=== PATIENT | female | born 1995 | race Caucasian/White ===

== ENCOUNTER → 2016-04-13 | Outpatient (CLI) | payer MEDICAID ==
[~2016-04-13] MED LIST: CELE20TA PO; CITA20 PO; JANU100T PO; METF-324 PO; SERO100T PO
--- NOTE | 2016-04-13 12:24 | EKG ---
Date Performed: 04/13/2016 Time Performed: 10:23:26 PTAGE: 20 years EKG: Sinus rhythm . Low QRS voltages in precordial leads Borderline ECG NO PREVIOUS TRACING DOCTOR: Boo Coelho Interpretating Date/Time 04/13/2016 12:22:24
== END ==
LOC: HCAV 10:15
DX: R00.2 Palpitations (principal); R55 Syncope and collapse
CPT/HCPCS: 93005

== ENCOUNTER 2016-12-18 15:33 | Emergency (ER) | payer MEDICAID ==
[~2016-12-18] VITALS: Ht 175.3 cm; Wt 125.8 kg
[~2016-12-18 15:33] MED LIST changes: -CITA20 PO; -JANU100T PO; -METF-324 PO
--- NOTE | 2016-12-18 16:04 | PD ---
HPI Chief Complaint: Chest Pain Time Seen by Provider: 15:41 Travel History International Travel<30 days: No Contact w/Intl Traveler<30days: No Traveled to known affect area: No History of Present Illness HPI The patient was seen and examined in the presence of the nurse. This patient complains of chest pain. Duration 2 days. Symptoms severity is moderate. She has history of schizophrenia. No known cardiac disease. Denies chest wall injury. She is not having fever or shortness of breath. No alleviating factors. no Exacerbating factors PFSH Past Medical History Diabetes: Yes (type II) Diminished Hearing: No Immunizations Current: Yes Schizophrenia: Yes ?: Not Past Surgical History Tonsillectomy: Yes (and adenoids) Other Surgery: Yes (jaw surgery) Social History Alcohol Use: No Tobacco Use: No Substance Use: No Allergies-Medications (Allergen,Severity, Reaction): Coded Allergies: Sulfa (Sulfonamide Antibiotics) (Verified Allergy, Severe, 12/18/16) Reported Meds & Prescriptions Reported Meds & Active Scripts Active Seroquel (Quetiapine Fumarate) 100 Mg Tab 100 Mg PO 1-2 TAB Q HS Celexa (Citalopram Hydrobromide) 20 Mg Tab 20 Mg PO DAILY Review of Systems General / Constitutional: No: Fever Eyes: No: Visual changes HENT: No: Headaches Cardiovascular: Positive: Chest Pain or Discomfort Respiratory: No: Shortness of Breath Gastrointestinal: No: Abdominal Pain Genitourinary: No: Dysuria Musculoskeletal: No: Pain Skin: No Rash Neurologic: No: Weakness Psychiatric: No: Depression Endocrine: No: Polydipsia Hematologic/Lymphatic: No: Easy Bruising Physical Exam Narrative GENERAL: Well-nourished, well-developed patient in no apparent distress. SKIN: Focused skin assessment reveals no rash and nodules. Skin is Warm and dry. HEAD: Atraumatic. Normocephalic. EYES: Pupils equal and round. No scleral icterus. No injection or drainage. ENT: No nasal bleeding or discharge. Mucous membranes pink and moist. NECK: Trachea midline. No JVD. CARDIOVASCULAR: Regular rate and rhythm. No murmur appreciated. RESPIRATORY: No accessory muscle use. Clear to auscultation. Breath sounds equal bilaterally. GASTROINTESTINAL: Abdomen soft, non-tender, nondistended. Hepatic and splenic margins not palpable. MUSCULOSKELETAL: No obvious deformities. No clubbing. No cyanosis. No edema. Some sternal tenderness which reproduces her chest pain complaints. No bruising or crepitus. NEUROLOGICAL: Awake and alert. No obvious cranial nerve deficits. Motor grossly within normal limits. Normal speech. PSYCHIATRIC: Appropriate mood and affect; insight and judgment fairly reasonable given her schizophrenia Data Data Orders Orders Chest, Single Ap (12/18/16 ) Electrocardiogram (12/18/16 ) Acetamin-Hydrocod 325-5 Mg ([place] 5-325 (12/18/16 16:15) MDM Medical Decision Making Medical Screen Exam Complete: Yes Emergency Medical Condition: Yes Medical Record Reviewed: Yes Differential Diagnosis Differential diagnosis includes SD, angina, pericarditis, pleurisy, GERD, anxiety. Narrative Course I have reviewed the patient's electronic medical record. I reviewed her EKG which shows sinus rhythm at [address] elevation or ectopy I reviewed her chest x-ray is normal Presentation is consistent with chest wall pain. She will not require inpatient evaluation or cardiac stress testing for this problem. Recommend primary care follow-up. Gave her a pain pill Diagnosis Primary Impression: Musculoskeletal chest pain Additional Impression: Schizophrenia, chronic condition Additional Instructions: The patient was advised to follow up with their physician and return if they worsen. Med/Other Pt SpecificInfo: Other Disposition: 01 DISCHARGE HOME Condition: Stable Carson Cross MD Dec 18, 2016 16:04
[2016-12-18] MEDS ORDERED: ACETAMINOPHEN/HYDROcodone 325 MG/5 MG TAB PO ONE (16:15)
--- NOTE | 2016-12-18 16:46 | RADRPT ---
EXAM DATE/TIME: 12/18/2016 16:26 [facility] COMPARISON: No previous studies available for comparison. INDICATIONS : Chest pain. MEDICAL HISTORY : None. SURGICAL HISTORY : None. ENCOUNTER: Initial ACUITY: 1 day PAIN SCORE: 8/10 LOCATION: Bilateral chest FINDINGS: A single view of the chest demonstrates the lungs to be symmetrically aerated without evidence of mas s, infiltrate or effusion. The cardiomediastinal contours are unremarkable. Osseous structures are intact. CONCLUSION: No acute disease. Dax Singh MD FACR on December 18, 2016 at 16:44 Board Certified Radiologist. This report was verified electronically.
--- NOTE | 2016-12-18 21:22 | EKG ---
Date Performed: 12/18/2016 Time Performed: 15:49:58 PTAGE: 21 years EKG: Sinus rhythm NORMAL ECG INTERPRETATION BASED ON A DEFAULT AGE OF 41 YEARS No significant change from prior electr ocardiogram. DOCTOR: Fermin Cobb Interpretating Date/Time 12/18/2016 21:20:48
== END 2016-12-18 17:29 | disposition home or self-care (01) ==
LOC: PHED 15:33
DX: R07.9 Chest pain, unspecified (principal); F20.89 Other schizophrenia; E11.9 Type 2 diabetes mellitus without complications
CPT/HCPCS: 71010; 93005; 99284

== ENCOUNTER 2017-07-24 19:03 | Emergency (ER) | payer OTHER ==
[~2017-07-24] VITALS: Ht 177.8 cm; Wt 109.7 kg
[2017-07-24 19:06] VITALS: BP 161/91; PULSE 126; RESP 28; TEMP 97.9; O2SAT 100
[2017-07-24] MEDS ORDERED: METF1000 PO (19:14)
[2017-07-24 19:26] VITALS: BP 123/71; PULSE 93; RESP 18; O2SAT 99
[2017-07-24] MEDS ORDERED: SODIUM CHLORIDE 0.9% FLUSH 10 ML FLUSH IVF PRN (19:45)
[2017-07-24] MEDS ORDERED: SODIUM CHLOR 0.9% 1000 ML INJ 1,000 ML IV ONE ×2 (19:45→21:15)
[2017-07-24 19:49] LABS: AUTOMATED NEUTROPHIL # 8.5 TH/MM3 (1.8-7.7); BASOPHIL # 0.2 TH/MM3 (0-0.2); BASOPHIL % 1.8 % (0.0-2.0); EOSINOPHIL # 0.1 TH/MM3 (0-0.4); EOSINOPHIL % 0.7 % (0.0-4.0); HEMATOCRIT 42.5 % (35.0-46.0); HEMOGLOBIN 14.1 GM/DL (11.6-15.3); LYMPH % 16.8 % (9.0-44.0); LYMPHOCYTE # 1.9 TH/MM3 (1.0-4.8); MEAN CELL VOLUME 79.8 FL (80.0-100.0); MEAN CORPUSCULAR HEMOGLOBIN 26.5 PG (27.0-34.0); MEAN CORPUSCULAR HGB CONC 33.3 % (32.0-36.0); MEAN PLATELET VOLUME 9.2 FL (7.0-11.0); MONO % 4.5 % (0.0-8.0); MONOCYTE # 0.5 TH/MM3 (0-0.9); NEUT % 76.2 % (16.0-70.0); PLATELET COUNT 267 TH/MM3 (150-450); RED BLOOD COUNT 5.33 MIL/MM3 (4.00-5.30); RED CELL DISTRIBUTION WIDTH 12.6 % (11.6-17.2); WHITE BLOOD COUNT 11.2 TH/MM3 (4.0-11.0)
[2017-07-24 19:58] LABS: BILIRUBIN, URINE NEG (NEG); BLOOD, URINE NEG (NEG); GLUCOSE,URINE 1000 OR GREATER mg/dL (NEG); KETONE, URINE TRACE mg/dL (NEG); NITRITE,URINE NEG (NEG); URINE COLOR YELLOW (YELLW/STRAW); URINE LEUKOCYTE ESTERASE TRACE (NEG)
--- NOTE | 2017-07-24 19:59 | RADRPT ---
EXAM DATE/TIME: 07/24/2017 19:44 [facility] COMPARISON: CHEST SINGLE AP, December 18, 2016, 16:26. INDICATIONS : Chest pain. MEDICAL HISTORY : Diabetes mellitus type II. Schizophrenia. SURGICAL HISTORY : Tonsillectomy. Jaw surgery. ENCOUNTER: Initial ACUITY: 1 day PAIN SCORE: 4/10 LOCATION: Bilateral chest FINDINGS: A single view of the chest demonstrates the lungs to be symmetrically aerated without evidence of mas s, infiltrate or effusion. The cardiomediastinal contours are unremarkable. Osseous structures are intact. CONCLUSION: No acute disease. Morris Angel MD on July 24, 2017 at 19:58 Board Certified Radiologist. This report was verified electronically.
[2017-07-24 20:07] LABS: CHLORIDE 99 MEQ/L (98-107); SODIUM (NA) 134 MEQ/L (136-145)
[2017-07-24 20:10] LABS: BICARBONATE 25.7 MEQ/L (21.0-32.0); CALCIUM 8.8 MG/DL (8.5-10.1); GLUCOSE,RANDOM 386 MG/DL (74-106); MAGNESIUM 1.6 MG/DL (1.5-2.5)
[2017-07-24 20:11] LABS: BLOOD UREA NITROGEN 11 MG/DL (7-18)
[2017-07-24 20:13] LABS: PROTHROMBIN TIME - PATIENT 10.1 SEC (9.8-11.6)
[2017-07-24 20:14] LABS: CREATININE 0.73 MG/DL (0.50-1.00); GLOMERULAR FILTRATION RATE 101 ML/MIN (>89)
[2017-07-24] MEDS ORDERED: KETOROLAC TROMETHAMINE 30 MG/ML (IVP) VIAL IV PUSH ONE (20:15)
[2017-07-24] MEDS ORDERED: ONDANSETRON HCL 4 MG/2 ML VIAL IV PUSH ONE (20:15)
[2017-07-24 20:18] LABS: TROPONIN I LESS THAN 0.02 NG/ML (0.02-0.05)
[2017-07-24 20:29] LABS: BACTERIA, URINE FEW /hpf; RBC, URINE 0-3 /hpf (0-3); SQUAMOUS EPITHELIAL CELL URINE 0-5 /hpf (0-5); WHITE BLOOD CELL CLUMPS FEW
[2017-07-24 20:57] VITALS: BP 119/77; PULSE 88; RESP 18; O2SAT 98
[2017-07-24] MEDS ORDERED: cefTRIAXone INJ 1,000 MG in SODIUM CHLORIDE 0.9% INJ 100 ML IV ONE (21:15)
[2017-07-24 21:32] VITALS: BP 108/66; PULSE 86; TEMP 98.3
--- NOTE | 2017-07-24 22:08 | PD ---
HPI Chief Complaint: Chest Pain Time Seen by Provider: 19:34 Travel History International Travel<30 days: No Contact w/Intl Traveler<30days: No Traveled to known affect area: No History of Present Illness HPI 22-year-old female presents to the emergency department complaint of chest pain sharp and stabbing and headache. Patient has had dizziness. Patient denies fever chills. She denies syncope or near syncope. Patient denies any upper extremity or lower extremity numbness tingling or weakness. Patient denies abdominal pain. Patient is unaware of dysuria frequency urgency hematuria or flank pain. Patient's had no shortness of breath. No hemoptysis or cough. Family members have been ill with respiratory illness and patient has had some mild respiratory symptoms. Patient was at work when symptoms began sutured no medications and presents to immediately from work to the emergency department. Patient occasionally takes ibuprofen which provides pain relief for any inflammatory symptoms and is prescribed metformin 1 g twice daily. Patient did not take her evening dose of medication. Patient is unable to identify exacerbating or alleviating factors. Patient rates pain as moderate to severe. Headache is not sudden onset thunderclap or worst ever. Chest pain is nonradiating. No diaphoresis dyspnea pleuritic pain hemoptysis referred neck jaw back shoulder arm pain. PFSH Past Medical History Narrative Medical Diabetes, headaches, schizophrenia, noncompliance; no alcohol use; nursing notes reviewed Anxiety: Yes Diabetes: Yes (type II) Patient Takes Glucophage: Yes Diminished Hearing: No Immunizations Current: Yes Schizophrenia: Yes Tetanus Vaccination: > 5 Years Influenza Vaccination: Yes ?: Not LMP: STATED 07/24/17 "DON'T KNOW" : 0 Past Surgical History Tonsillectomy: Yes (and adenoids) Other Surgery: Yes (jaw surgery) Social History Alcohol Use: No Tobacco Use: No Substance Use: No Allergies-Medications (Allergen,Severity, Reaction): Coded Allergies: Sulfa (Sulfonamide Antibiotics) (Verified Allergy, Severe, 07/24/17) Reported Meds & Prescriptions Reported Meds & Active Scripts Active Macrobid (Nitrofurantoin Monoh/Nitrofur Macro) 100 Mg Cap 100 Mg PO BID 7 Days Zofran Odt (Ondansetron Odt) 4 Mg Tab 4 Mg SL Q6HR PRN Seroquel (Quetiapine Fumarate) 100 Mg Tab 100 Mg PO 1-2 TAB Q HS Celexa (Citalopram Hydrobromide) 20 Mg Tab 20 Mg PO DAILY Reported Metformin (Metformin HCl) 1,000 Mg Tab 1,000 Mg PO BIDPC Review of Systems Except as stated in HPI: all other systems reviewed are Neg Physical Exam Narrative GENERAL: Well-developed well-nourished female no acute distress no respiratory SKIN: Warm and dry. HEAD: Atraumatic. Normocephalic. EYES: Pupils equal and round. No scleral icterus. No injection or drainage. ENT: No nasal bleeding or discharge. Mucous membranes pink and moist. NECK: Trachea midline. No JVD. No meningismus no nuchal rigidity. CARDIOVASCULAR: Regular rate and rhythm. RESPIRATORY: No accessory muscle use. Clear to auscultation. Breath sounds equal bilaterally. GASTROINTESTINAL: Abdomen soft, non-tender, nondistended. Hepatic and splenic margins not palpable. MUSCULOSKELETAL: Extremities without clubbing, cyanosis, or edema. No obvious deformities. NEUROLOGICAL: Awake and alert. No obvious cranial nerve deficits. Motor grossly within normal limits. Five out of 5 muscle strength in the arms and legs. Normal speech. PSYCHIATRIC: Appropriate mood and affect; insight and judgment normal. Data Data Last Documented VS Vital Signs Date Time Temp Pulse Resp B/P (MAP) Pulse Ox O2 Delivery O2 Flow Rate FiO2 07/24/17 22:50 Room Air 07/24/17 22:48 88 16 121/73 (89) 99 07/24/17 21:32 98.3 Orders Orders Electrocardiogram (07/24/17 19:35) Basic Metabolic Panel (Bmp) (07/24/17 19:35) Ckmb (Isoenzyme) Profile (07/24/17 19:35) Complete Blood Count With Diff (07/24/17 19:35) Magnesium (Mg) (07/24/17 19:35) Prothrombin Time / Inr (Pt) (07/24/17 19:35) Act Partial Throm Time (Ptt) (07/24/17 19:35) Troponin I (07/24/17 19:35) Chest, Single Ap (07/24/17 19:35) Ecg Monitoring (07/24/17 19:35) Bilateral Bp Monitoring (07/24/17 19:35) Iv Access Insert/Monitor (07/24/17 19:35) Oximetry (07/24/17 19:35) Oxygen Administration (07/24/17 19:35) Sodium Chloride 0.9% Flush (Ns Flush) (07/24/17 19:45) Sodium Chlor 0.9% 1000 Ml Inj (Ns 1000 M (07/24/17 19:45) Lactic Acid (07/24/17 19:35) Ed Urine Pregnancytest Poc (07/24/17 19:35) Urinalysis - C+S If Indicated (07/24/17 19:35) Beta Hydroxybutyrate (Acetone) (07/24/17 19:35) Blood Glucose (07/24/17 19:35) Ondansetron Inj (Zofran Inj) (07/24/17 20:15) Ketorolac Inj (Toradol Inj) (07/24/17 20:15) Urine Culture (07/24/17 19:45) Sodium Chlor 0.9% 1000 Ml Inj (Ns 1000 M (07/24/17 21:15) Ceftriaxone Inj (Rocephin Inj) (07/24/17 21:15) Blood Culture (07/24/17 21:07) Lactic Acid (07/24/17 21:20) Blood Glucose (07/24/17 21:07) Metformin (Glucophage) (07/24/17 23:15) Ed Discharge Order (07/24/17 23:05) Labs Laboratory Tests Test 07/24/17 19:20 07/24/17 19:45 07/24/17 22:25 White Blood Count 11.2 TH/MM3 Red Blood Count 5.33 MIL/MM3 Hemoglobin 14.1 GM/DL Hematocrit 42.5 % Mean Corpuscular Volume 79.8 FL Mean Corpuscular Hemoglobin 26.5 PG Mean Corpuscular Hemoglobin Concent 33.3 % Red Cell Distribution Width 12.6 % Platelet Count 267 TH/MM3 Mean Platelet Volume 9.2 FL Neutrophils (%) (Auto) 76.2 % Lymphocytes (%) (Auto) 16.8 % Monocytes (%) (Auto) 4.5 % Eosinophils (%) (Auto) 0.7 % Basophils (%) (Auto) 1.8 % Neutrophils # (Auto) 8.5 TH/MM3 Lymphocytes # (Auto) 1.9 TH/MM3 Monocytes # (Auto) 0.5 TH/MM3 Eosinophils # (Auto) 0.1 TH/MM3 Basophils # (Auto) 0.2 TH/MM3 CBC Comment DIFF FINAL Differential Comment Prothrombin Time 10.1 SEC Prothromb Time International Ratio 1.0 RATIO Activated Partial Thromboplast Time 26.5 SEC Blood Urea Nitrogen 11 MG/DL Creatinine 0.73 MG/DL Random Glucose 386 MG/DL Calcium Level 8.8 MG/DL Magnesium Level 1.6 MG/DL Sodium Level 134 MEQ/L Potassium Level 3.6 MEQ/L Chloride Level 99 MEQ/L Carbon Dioxide Level 25.7 MEQ/L Anion Gap 9 MEQ/L Estimat Glomerular Filtration Rate 101 ML/MIN Lactic Acid Level 2.0 mmol/L 1.3 mmol/L Total Creatine Kinase 84 U/L Troponin I LESS THAN 0.02 NG/ML B-Hydroxybutyrate 0.18 MMOL/L Urine Color YELLOW Urine Turbidity CLEAR Urine pH 5.0 Urine Specific [place] 1.010 Urine Protein NEG mg/dL Urine Glucose (UA) 1000 OR GREATER mg/dL Urine Ketones TRACE mg/dL Urine Occult Blood NEG Urine Nitrite NEG Urine Bilirubin NEG Urine Urobilinogen 0.2 MG/DL Urine Leukocyte Esterase TRACE Urine RBC 0-3 /hpf Urine WBC 25-49 /hpf Urine WBC Clumps FEW Urine Squamous Epithelial Cells 0-5 /hpf Urine Bacteria FEW /hpf Urine Yeast (Budding) FEW Microscopic Urinalysis Comment CULTURE INDICATED MDM Medical Decision Making Medical Screen Exam Complete: Yes Emergency Medical Condition: Yes Medical Record Reviewed: Yes Interpretation(s) Lactic acid: 2, repeat 1.3, not elevated Beta hydroxybutyric acid: 0.18, not elevated [id number] hCG: Negative Urinalysis: Positive glucose positive ketones positive leukocyte Estrace positive white blood cells positive clumped white blood cells positive bacteria cultures indicated Last Impressions Chest X-Ray 07/24/171934 Signed Impressions: Service Date/Time: Monday, July 24, 2017 19:44 - CONCLUSION: No acute disease. Morris Angel MD CBC & BMP Diagram 07/24/17 19:20 Calcium Level 8.8, Magnesium Level 1.6 Vital Signs Date Time Temp Pulse Resp B/P (MAP) Pulse Ox O2 Delivery O2 Flow Rate FiO2 07/24/17 22:50 Room Air 07/24/17 22:48 88 16 121/73 (89) 99 Room Air 07/24/17 21:32 98.3 86 108/66 (80) 07/24/17 20:57 88 18 119/77 (91) 98 Room Air 07/24/17 19:26 93 18 123/71 (88) 99 Room Air 07/24/17 19:17 91 Room Air 07/24/17 19:06 97.9 126 28 161/91 (114) 100 EKG: Normal sinus rhythm rate [address] elevation injury pattern or ectopy noted Differential Diagnosis Chest pain, atypical chest pain, esophageal spasm, peptic ulcer disease, gastritis, biliary colic, pneumonia, pneumothorax, ACS, PE, , UTI, viral syndrome, electrolyte disturbance, arrhythmia Narrative Course IV access obtained specimens collected and sent for resulting patient administered normal saline bolus EKG performed which reveals no acute ST elevation injury pattern or ectopy CBC with automated differential grossly normal range lactic acid 2.0 not elevated Chemistries remarkable for random glucose of 386 normal bicarb and anion gap; troponin I less than 0.02, elevated CK 86 not elevated Repeat lactic acid 1.3 Urinalysis positive leukocyte esterase white blood cells clumped white blood cells bacteria culture indicated also noted to have glucose and ketones Beta hydroxybutyric acid is 0.18 not elevated Patient received Rocephin 1 g IV for abnormal urinalysis additional liter of normal saline patient received Toradol for complaint of chest pain headache pain myalgias and arthralgias is pain-free Patient is now stable for outpatient management and follow-up with her primary care provider patient given a 1 day work excuse Diagnosis Primary Impression: UTI (urinary tract infection) Additional Impressions: Atypical chest pain Diabetes mellitus type 2, uncomplicated H/O headache Referrals: Primary Care Physician 2 days Patient Instructions: General Instructions Additional Instructions: Follow diabetic diet closely Monitor blood sugars daily Monitor temperature every 4 hours with thermometry take acetaminophen/Tylenol every 4 hours as needed for fever 100.4F or greater Take ibuprofen/Advil/Motrin 800 mg as often as every 8 hours as needed for pain or for fever 100.3F or greater Take diabetic medication as prescribed Complete course of antibiotic as prescribed Take medication as prescribed as needed for nausea and/or vomiting No work 1 day Return to the emergency department for concerns or change in condition Increase fluid hydration Med/Other Pt SpecificInfo: Prescription(s) given Scripts Nitrofurantoin Monohydrate Macrocrystals (Macrobid) 100 Mg Cap 100 MG PO BID for Infection for 7 Days, #14 CAP 0 Refills Prov: Rhiannon Rashid MD 07/24/17 Ondansetron Odt (Zofran Odt) 4 Mg Tab 4 MG SL Q6HR Y for Nausea/Vomiting, #10 TAB 0 Refills Prov: Rhiannon Rashid MD 07/24/17 Disposition: 01 DISCHARGE HOME Condition: Stable Rhiannon Rashid MD July 24, 2017 22:08
[2017-07-24 22:48] VITALS: BP 121/73; PULSE 88; RESP 16; O2SAT 99
[2017-07-24] MEDS ORDERED: MACR100C2 PO (23:11)
[2017-07-24] MEDS ORDERED: ZOFR4TAB3 SL (23:11)
[2017-07-24] MEDS ORDERED: metFORMIN HCL 500 MG TAB PO ONE (23:15)
--- NOTE | 2017-07-25 21:11 | EKG ---
Date Performed: 07/24/2017 Time Performed: 19:18:20 PTAGE: 22 years EKG: Sinus rhythm NORMAL ECG PREVIOUS TRACING : 12/18/2016 15.49 Since the previous tracing, no significant change noted DOCTOR: Abebe Ochoa Interpretating Date/Time 07/25/2017 21:10:30
== END 2017-07-24 23:27 | disposition home or self-care (01) ==
LOC: PHED 19:03
DX: N39.0 Urinary tract infection, site not specified (principal); R07.89 Other chest pain; E11.9 Type 2 diabetes mellitus without complications; R51 Headache; F20.9 Schizophrenia, unspecified; Z79.84 Long term (current) use of oral hypoglycemic drugs
CPT/HCPCS: 71045; 80048; 81001; 82010; 82550; 83605; 83735; 84484; 84703; 85025; 85610; 85730; 86403; 87040; 87086; 87205; 93005; 96361; 96365; 96375; 99285; J0696; J1885; J2405; J7030